=== PATIENT | female | born 1985 | race Caucasian/White ===

== ENCOUNTER → 2020-06-18 13:40 | Outpatient (CLI) | payer BC, SELFPAY ==
[2020-06-19 10:25] LABS: COVID19 Sendout Not Detected (Not Detect)
== END ==
PROVIDERS: PCP Specialist; Visit Provider Physician Assistant
DX: Z01.812 Encounter for preprocedural laboratory examination (principal)
CPT/HCPCS: 87635

== ENCOUNTER 2020-06-21 12:09 | Day surgery (SDC) | payer BC, SELFPAY ==
[2020-06-18 15:12] VITALS: BMI 30.2
[2020-06-21] VITALS (17 sets, daily range): BP systolic 92–116; BP diastolic 43–76; PULSE 75–108; RESP 10–17; TEMP 36–37.2; O2SAT 95–100; BMI 30.2
--- NOTE | 2020-06-21 | PATH_ITS ---
[facility] Accession Number: [id number] . 01 Material submitted: . PART A: UTERUS/CERVIX - UTERUS AND CERVIX PART B: vagina - VAGINAL WALL . 02 Diagnosis: A. Uterus and Cervix, Hysterectomy: Endometrium, myometrium and cervix with no sigificant diagnostic abnormality. Negative for neoplasia, atypical hyperplasia and malignancy. . B. Vaginal Wall, Biopsy: Low-grade squamous intraepithelial neoplasia (VAIN 1). No evidence of malignancy. MRV 06/29/2020 1612 Local . 02 Comment: As part of routine quality assurance advisor, this case was also reviewed by Dr. Denton, who agrees with the interpretation. . 02 Electronically signed: . Gin Barnes MD, Pathologist NPI- [id number] . 01 Gross description: . A. Received in formalin, labeled uterus and cervix, and consists of a 152-gram uterus and detached cervix. The uterus measures 7.3 cm from superior fundus to lower uterine segment x 7.5 cm from cornu to cornu x 4.5 cm from anterior to posterior. The serosa is dolan-ink and smooth. The uterus is bivalved to reveal a 4.5 x 3.5 cm triangular endometrial cavity with a dolan-pink, focally hemorrhagic and glistening endometrium measuring 0.3 cm in thickness. The myometrium is dolan-pink and trabeculated, measuring 1.8 cm in thickness. The detached cervix measures 6.0 x 3.5 x 3.0 cm. The dolan wrinkled to smooth ectocervix measures 4.6 x 3.5 cm, and there is a 2.0 x 0.2 cm slit-like probe patent os. Sectioning reveals a dolan-pink, herringbone endocervical mucosa and multiple nabothian cysts ranging from 0.1 to 0.5 cm. [employer] Power Plant Engineer sections are submitted. . A1-A2: admitting representative cervix. A3-A4: anterior uterus, full-thickness sections. A5-A6: posterior uterus, full-thickness sections. . B. Received in formalin, labeled vaginal wall, and consists of a 1.0 x 0.5 x 0.3 cm dolan-white fragment of skin. The margin is inked blue. The specimen is bisected and entirely submitted in cassette B1. ([id number]) /MRV 06/22/2020 1046 Local . 02 Microscopic: . A. An immunohistochemical stain was performed to characterize cells of interest, and is positive around areas of tuboendometrioid metaplasia, as well as endocervical glands. The control stain showed appropriate reactivity. . B. A p16 stain was performed to evaluate the cells of interest and shows patchy cytoplasmic and nuclear staining, but no definite block immunostaining, which mitigates against an interpretation of high grade squamous intraepithelial lesion. The control stain showed appropriate reactivity. . * This test was developed and its performance characteristics determined by [employer]. It has not been cleared or approved by the U.S. Food and Drug Administration. The FDA has determined that such clearance or approval is not necessary. This test is used for clinical purposes. It should not be regarded as investigational or for research. . 02 Pathologist provided ICD-10: N92.0, N89.0 . 02 CPT . 096914, 602154, [id number] Performed at: 01 [facility] [address] [place] [address], [place], [place] [id number] MD Vivek Jerry MD Phone: [phone] Performed at: [address] [place], [place] [id number] MD Gin Barnes MD Phone: [phone]
[2020-06-21] MEDS: LACTATED RINGERS 1,000 ML 42 ML IV (12:54)
--- NOTE | 2020-06-21 13:20 | PM.PREOP ---
Pre-operative Note COVID-19 COVID-19 status: Negative Result date/Date tested (Pos, Neg/Pending): 06/18/20 Interval Note History & Physical reviewed/Exam performed by Physician: Yes Changes to H&P: No
[2020-06-21] MEDS: CEFAZOLIN 2 GM/100 ML FROZ.PIGGY IV (13:27)
--- NOTE | 2020-06-21 13:48 | SUR.OPER ---
Lithotomy on padded OR bed, head on pillow, arms secured on padded arm boards at <90 degrees abduction. Legs secured in padded yellow fins stirrups.
[2020-06-21] MEDS: BUPIVACAINE 0.5% W/ EPI (PF) 30 ML VIAL INJ (13:52)
--- NOTE | 2020-06-21 14:58 | P.OP_ITS ---
Operative Date/Time/Diagnoses Date of procedure: 06/21/20 Time of procedure: 14:58 Pre-op diagnosis: Menorrhagia with likely adenomyosis Post-op diagnosis: same Procedure & Clinicians Procedure: Total vaginal hysterectomy, biopsy of vaginal lesion Same procedure as scheduled: Yes Indications: Menorrhagia with likely adenomyosis on ultrasound Surgeon: Daniela Van Crane Assembler: Steffi Faria Anesthesia Type: General Operative Notes Findings: Normal tubes and ovaries, slightly enlarged boggy uterus, area of the vaginal mucosa that appeared thickened Tawnya Sandra Closure Type: primary Specimen(s): other (Uterus, vaginal biopsy) Applied: catheter (Prabhakar) Estimated Blood Loss (mL): 50 Blood products transfused: none Procedure in detail: Patient was brought to the operating room where she was placed in yellowfin stirrups and prepped and draped in the usual sterile fashion. A check system was reviewed prior to the beginning of the case. Pulsatile stockings were in place and functional throughout the case. Warming was in place. 2 g of Ancef were in prior to beginning of the case. A Prabhakar catheter was placed. 0.5% Marcaine with epi was injected circumferentially and a scalpel was used to incise around the cervix. The mucosa was pushed superiorly. A single-tooth tenaculum was placed on the posterior lip of the cervix and a colpotomy incision was made. An anterior colpotomy incision was made. The bladder was held away from the cervix. Bites were taken of the cardinal ligament using the LigaSure. Keeping the bladder pushed superiorly sequential bites were taken of the cardinal and broad ligaments. The bladder was packed away from the uterus with a lap sponge. The rest of the attachments of the uterus including the broad ligament and the utero-ovarian ligaments were clamped and ligated. The uterus was removed intact. The ovaries appeared normal. There was no active bleeding. The perineum was closed with a pursestring suture of 0 Vicryl suture. The vaginal incision was closed from anterior posterior with 0 Vicryl suture. In area of slightly thickened rough tissue on the vaginal wall was biopsied and sent separately to pathology. The patient went to recovery room in good condition. Counts of instruments and sponges were correct. Complications: none Post-operative Condition: stable Disposition: Acute Care Plan for aftercare: Likely home in a.m. if stable
[2020-06-21] MEDS: fentaNYL 100 MCG/2 ML INJ IV ×2 (15:08→15:31)
--- NOTE | 2020-06-21 15:48 | SUR.PHASEI ---
Report called to Aníbal
[2020-06-21] MEDS: MORPHINE 4 MG/ML INJ IV ×2 (16:25→20:50)
[2020-06-21] MEDS: LACTATED RINGERS 1,000 ML 100 ML IV (16:26)
--- NOTE | 2020-06-21 16:28 | SUR.PHASEI ---
Patient transferred to the floor with belongings bag. Report given to Aníbal. VS stable. Miri-pad CDI. IV saline locked.
[2020-06-21] MEDS: KETOROLAC 30 MG/ML VIAL IV (18:17)
[2020-06-21] MEDS: HYDROCODONE/ACET 5/325 TABLET 2 TAB PO ×2 (18:19→22:15)
[2020-06-21] MEDS: DOCUSATE 250 MG CAPSULE PO (20:39)
[2020-06-21] MEDS: DIROXIMEL FUMARATE 231 MG 231 EACH PO (20:39)
[2020-06-21] MEDS: TOPIRAMATE 100 MG TABLET PO (20:44)
[2020-06-22 00:31] VITALS: BP 99/51; PULSE 69; RESP 16; TEMP 35.9; O2SAT 99
[2020-06-22] MEDS: KETOROLAC 30 MG/ML VIAL IV ×2 (00:38→05:50)
[2020-06-22 00:40] VITALS: O2SAT 99
[2020-06-22] MEDS: HYDROCODONE/ACET 5/325 TABLET 2 TAB PO ×3 (01:43→10:11)
[2020-06-22 04:59] VITALS: BP 104/58; PULSE 71; RESP 16; TEMP 35.9; O2SAT 98
[2020-06-22 05:34] LABS: Add Manual Diff / Slide Review NO; Basophils Absolute Auto 0 /uL (0-100); Basophils Percent Auto 0.3 % (0-2); Eosinophils Absolute Auto 0 /uL (0-450); Eosinophils Percent Auto 0.1 % (2-4); Hematocrit 39.1 % (36-46); Hemoglobin 13.2 g/dL (12.0-16.0); Lymphocytes Absolute Auto 1800 /uL (1100-4500); Lymphocytes Percent Auto 14.7 % (25-40); Mean Corpuscular HGB Conc 33.7 % (30-36); Mean Corpuscular Hemoglobin 30.2 PG (26-34); Mean Corpuscular Volume 89.5 fL (80-100); Monocytes Absolute Auto 600 /uL (0-900); Monocytes Percent Auto 5.2 % (3-14); Neutrophils Absolute Auto 9600 /uL (1500-7000); Neutrophils Percent Auto 79.7 % (50-75); Platelet Count 207 X10^3/uL (150-400); Red Blood Cell Count 4.37 X10^6/uL (4.0-5.2); Red Cell Distribution Width 13.2 % (11.6-14.8)
[2020-06-22] MEDS: SODIUM CHLORIDE 0.9% FLUSH 10 ML IV (05:51)
--- NOTE | 2020-06-22 07:37 | PM.DS.1 ---
History of Present Illness History of Present Illness Date Patient Seen: 06/22/20 Time Patient Seen: 07:37 Chief complaint: *OPB* Narrative: Postoperative day 1 total vaginal hysterectomy Discharge Providers Provider Discharge Date: 06/22/20 Primary care physician: Daniela Van MD Discharge provider: Daniela Van MD Summary Hospital Course Discharge Diagnosis: Menorrhagia Hospital Course: Patient underwent a total vaginal hysterectomy on 06/21/2020. She is doing well. Patient is ambulatory with mild dizziness. No nausea. Pain is under control. Status at Discharge Cognitive/behavioral status at discharge: oriented Functional status at discharge: independent ambulation Overall status at discharge: patient is progressing back to baseline Exam Vital Signs (past 8 hours): - 06/22/20 00:31 06/22/20 00:40 06/22/20 04:59 Temperature 96.7 F L 96.7 F L Pulse Rate 69 71 Respiratory Rate 16 16 Blood Pressure 99/51 L 104/58 L Pulse Oximetry 99 99 98 Oxygen Delivery Method Room Air Oxygen Flow Rate 0 Narrative Exam Narrative: Abdomen is soft, with minimal suprapubic tenderness. Minimal vaginal bleeding. Extremities without edema and nontender. Objective Labs Result Diagrams: 06/22/20 04:50 Labs: Laboratory Results - last 24 hr 06/22/20 04:50 WBC 12.0 H RBC 4.37 Hgb 13.2 Hct 39.1 MCV 89.5 MCH 30.2 MCHC 33.7 RDW 13.2 Plt Count 207 Neut % (Auto) 79.7 H Lymph % (Auto) 14.7 L [place] % (Auto) 5.2 Eos % (Auto) 0.1 L Baso % (Auto) 0.3 Neut # (Auto) 9600 H Lymph # (Auto) 1800 [place] # (Auto) 600 Eos # (Auto) 0 Baso # (Auto) 0 Discharge Assessment & Plan Assessment and Plan Assessment: Patient is status post total vaginal history doing well. Plan of Treatment: Patient will be discharged home. Routine precautions reviewed. Discharge Plan Discharge Plan Patient Disposition: Home Discharge orders & Medications Discharge Orders: Discharge (Order); Ordered 06/22/20 Ordered By: Daniela Van Prescriptions: Continued topiramate 100 mg capsule,extended release 24hr 100 mg PO BID RF: 0 hydrocodone-acetaminophen 5-325 mg tablet 2 tab PO Q4-6H PRN (Reason: pain) Qty: 30 RF: 0 ondansetron 4 mg tablet,disintegrating 4 mg PO Q8H PRN (Reason: nausea and vomiting) Qty: 20 RF: 0 Vumerity 231 mg capsule,delayed release(DR/EC) 231 mg PO BID RF: 0 modafinil 100 mg tablet 100 mg PO DAILY PRN (Reason: Fatigue) RF: 0 aspirin 81 mg tablet,delayed release (DR/EC) 81 mg PO DAILY RF: 0 Follow up/Referrals: Daniela Van MD [Primary Care Provider] - 2 Weeks Diet/Activity/Treatments Diet: Regular Activity: Nothing in vagina or lifting over 20 lb for 6 weeks Skin/Wound/Dressing Care Report to your healthcare provider any signs of infection, such as:: chills, fever and increased pain Visit Report/Discharge Packet Instructions: DI for Hysterectomy Stand Alone Forms: Surgery Discharge Discharge Data Primary Care Provider: Daniela Van Attending Provider: Daniela Van Quality VTE Deep Vein Thrombosis/Pulmonary Embolism Present on Admission: No
[2020-06-22 07:45] VITALS: BP 101/60; PULSE 69; RESP 16; TEMP 36.6; O2SAT 99
--- NOTE | 2020-06-22 08:08 | PC.NURSE ---
Assess- Patient is doing well this am. Medicated with Vicodin and toradol around 0600, warm pack made for patient, not too hot. Will be taking her triana catheter out after breakfast and she will be discharged home. Will make sure that patient is able to void and ambulate without difficulty. She is not having any nausea, tadeo pad has minimal bleeding. Resting in bed now.
[2020-06-22] MEDS: TOPIRAMATE 100 MG TABLET PO (08:19)
[2020-06-22] MEDS: DOCUSATE 250 MG CAPSULE PO (08:19)
[2020-06-22] MEDS: INFLUENZA VACCINE 0.5 ML SYRINGE IM (08:19)
[2020-06-22] MEDS: DIROXIMEL FUMARATE 231 MG 231 EACH PO (08:39)
--- NOTE | 2020-06-22 10:47 | CM.DANOTE ---
Patient is a 34 year old female who was admitted on 06/21/20 for Total Hysterectomy. Pt has [employer] for insurance and her PCP is not listed. EMR was reviewed. Per WINDY MCKNIGHT, pt tolerated procedure well with pain controlled, minimal bleeding, independent and ambulating well and pt medically stable to d/c later today. Per RN, discontinued triana cath and waiting to confirm pt can void independently prior to d/c today and no concerns at this time. Pt resides at home in [facility] with her spouse and is independent with ADL's at baseline. Does not use equipment to ambulate and drives. No needs identified and no barriers to discharge. Plan: Patient to d/c home later today via family POV once pt able to void independently. No SW needs at this time. LELA Phelps Discharge Planning/Care Management CM Discharge Assessment Start: 06/22/20 10:44 Freq: Status: Active Protocol: Document 06/22/20 10:45 BF (Rec: 06/22/20 10:46 BF [id number]) Discharge Planning Assessment Assigned Re Recording Mixer LELA Toro Advance Directives? No Advance Directives on File No History Provided By Patient,Medical Record Has Patient been admitted in last 30 No days? Prior Living Arrangements House Household Members spouse Type of transporation used prior to Drives own vehicle admit Independent with ADL's Yes Is patient alert and oriented? Yes Discharge Plan Home Transportation Arrangement Family able to provide transport home today Referrals Initiated None needed Whiteboard Updated in Patient Room with Yes name and ext. # of Re Recording Mixer Review Status In Process Please Provide Date Initial DC 06/22/20 Assessment Was Performed Next Review Type Continued Stay Review Pre-Anesthesia Assessment Start: 06/18/20 15:12 Freq: Status: Complete Protocol: Document 06/18/20 15:12 CAB (Rec: 06/18/20 15:22 CAB [id number]) Pre-Anesthesia Assessment Patient Information Reviewed Via Chart Review Comment COVID screen @ 06/18/20 Primary Care Provider Aristeo Cardozo Specialist Seen Charging Manipulator Primary Language Belarusian Height 167.64 cm Weight 84.822 kg Body Mass Index (BMI) 30.2 Hx Anesthesia Reactions Prior surgical history not identified Anesthesia Review Requested No Requirements Manager No Smoking Status Never smoker History of Falling (Recent or History of No ) Patient is completely paralyzed or No completely immobile Mental Status Oriented to own ability Is patient on oxygen? No Hx Sleep Apnea No Currently Taking a Beta [place] No Anti-Coagulant Therapy No Has a Physician Scientist No Cardiac Testing No Hx Pacemaker/ICD No Pacemaker Rep Required? No Cardiac Clearance Received Not Applicable Urinary Catheter Present No Hx Urinary Self Catheterization No Diabetes No Have you had any close contact with Unknown someone diagnosed with COVID-19? Patient Discharge Plan Description Return Home
== END 2020-06-22 11:00 | disposition home or self-care (01) ==
LOC: OR 12:13 → AC 13:28
PROVIDERS: PCP Specialist; Referring Provider Specialist; Visit Provider Specialist
PROC: (CPT 58260; principal; 2020-06-21 13:30)
DX: N89.0 Mild vaginal dysplasia (principal); G35 Multiple sclerosis; Z23 Encounter for immunization
CPT/HCPCS: 58260; 36415; 56605; 85025; 90471; 90656; J0690; J1885; J2270; J2704; J3010; Q2038